=== PATIENT | male | born 1985 ===

== ENCOUNTER 2017-12-27 00:38 | Inpatient (IN) | payer OTHER ==
[~2017-12-27] VITALS: Ht 175.3 cm; Wt 84.2 kg
[2017-12-27] VITALS (7 sets, daily range): BP systolic 118–135; BP diastolic 74–84
[2017-12-27 04:10] LABS: BASOPHILS # (AUTO) 0.03 x10^3/uL (0-0.1); BASOPHILS % (AUTO) 0 % (0-1); EOSINOPHILS % (AUTO) 0 % (1-7); LYMPHOCYTES # (AUTO) 1.69 x10^3/uL (1-3.4); LYMPHOCYTES % (AUTO) 13 % (22-44); MD NO; MEAN CORPUSCULAR HEMOGLOBIN 30.8 pg (27.5-34.5); MEAN CORPUSCULAR HGB CONC 35.7 g/dL (33.2-36.2); MEAN CORPUSCULAR VOLUME 86.3 fL (81-97); MEAN PLATELET VOLUME 7.2 fL (7.4-10.4); MONOCYTES # (AUTO) 1.37 x10^3/uL (0.2-0.8); MONOCYTES % (AUTO) 11 % (2-9); NEUTROPHILS # (AUTO) 9.49 x10^3/uL (1.8-6.8); NEUTROPHILS % (AUTO) 75 % (42-75); PLATELET COUNT 283 x10^3/uL (130-400); RED BLOOD COUNT 2.68 x10^6/uL (4.38-5.82); RED CELL DISTRIBUTION WIDTH 12.6 % (9.4-14.8)
[2017-12-27 04:18] LABS: ALANINE AMINOTRANSFERASE 27 U/L (12-78); ALBUMIN 3.2 g/dL (3.4-5.0); ANION GAP 8 mmol/L (5-15); CHLORIDE 97 mmol/L (98-107)
[2017-12-27 04:19] LABS: INTERNATIONAL NORMALIZED RATIO 1.17 (0.93-1.1); PROTHROMBIN TIME 12.1 Seconds (9.6-11.5)
[2017-12-27 04:21] LABS: ALKALINE PHOSPHATASE 42 U/L (45-117); BILIRUBIN,TOTAL 0.6 mg/dL (0.2-1.0); TOTAL PROTEIN 5.4 g/dL (6.4-8.2)
[2017-12-27] MEDS ORDERED: ONDANSETRON 2MG/ML, 2ML IVPush PRN (05:00)
[2017-12-27] MEDS ORDERED: ACETAMINOPHEN 325 MG TABLET PO PRN (05:00)
[2017-12-27] MEDS ORDERED: OXYcodone/APAP 5/325MG TABLET PO PRN (05:00)
[2017-12-27] MEDS ORDERED: PLEASE ENTER ALLERGIES MC SCH (05:30)
[2017-12-27] MEDS: SODIUM CHLORIDE 0.9% 1,000 ML IV SCH ×3 (05:52→19:06)
[2017-12-27 06:02] LABS: % IRON SATURATION 9 % (20-55); IRON LEVEL 21 mcg/dL (65-175); TOTAL IRON BINDING CAPACITY 222 mcg/dL (250-450)
[2017-12-27] MEDS ORDERED: LACTULOSE 10 GM/15 ML UDC PO SCH (09:00)
[2017-12-27 09:59] LABS: CLOSTRIDIUM DIFFICILE ANTIGEN NEGATIVE; CLOSTRIDIUM DIFFICILE TOXIN NEGATIVE (Negative)
[2017-12-27] MEDS ORDERED: LORazepam 2 MG/ML, 1ML IVPush PRN (13:00)
[2017-12-27] MEDS ORDERED: LABETALOL 250 MG in DEXTROSE 5% 200 ML IV PRN (17:30)
== END 2017-12-27 19:34 | disposition short-term general hospital (02) | DRG 300 ==
LOC: CCU 02:50
PROVIDERS: ADMIT Hospitalist; ATTEND Hospitalist
PROC: 30233N1 Transfusion of Nonautologous Red Blood Cells into Peripheral Vein, Percutaneous Approach (ICD-10-PCS; principal; 2017-12-27)
DX: I72.8 Aneurysm of other specified arteries (principal); I77.2 Rupture of artery; D62 Acute posthemorrhagic anemia; E87.1 Hypo-osmolality and hyponatremia; K59.03 Drug induced constipation; T40.605A Adverse effect of unspecified narcotics, initial encounter; Z85.72 Personal history of non-Hodgkin lymphomas; Z87.891 Personal history of nicotine dependence; Z92.21 Personal history of antineoplastic chemotherapy; E83.51 Hypocalcemia; D72.828 Other elevated white blood cell count
CPT/HCPCS: 36415; 80053; 82728; 83540; 83550; 83690; 83735; 84100; 85014; 85018; 85025; 85610; 85730; 86850; 86900; 86923; 87046; 87081; 87324; 87427; 89055; J7060; J2060; J7030; P9016